=== PATIENT | female | born 1970 | race American Indian/Alaskan Native ===

== ENCOUNTER 2017-08-26 14:37 | Emergency (ER) | payer OTHER ==
[2017-08-26 14:45] VITALS: BMI 22.2
[2017-08-26 15:10] VITALS: BP 136/74; PULSE 87; RESP 18; TEMP 98; O2SAT 99
--- NOTE | 2017-08-26 15:15 | ED PDOC ---
Arrival/HPI - General Time Seen by Provider: 08/26/17 14:41 Historian: Patient, Family (niece) - History of Present Illness Narrative History of Present Illness (Text): 08/26/17 15:15 This 47 yo female with pmh HIV+, lung Ca., presents to this ED requesting wound check. Patient stated she was admitted at [facility] for right pleural effusion on July 24. Patient got a chest tube inserted on . Patient was discharged home x 2 weeks ago. She stated she was supposed to have a nurse look at the chest tube on a daily basis. However, due to insurance coverage problems, she has not had wound dressing wound changed. Patient stated she saw her pmd early today, and recommended patient to be seen at ED for wound check, and wound dressing change. Patient noted her HIV is controlled, with a CD4 that is "high", and a viral load ninfa is is "normal" as per patient. Patient denies sob, fever, cp, wound discharge, cellulitis, cough , trauma, or dizziness. Time/Duration: Other (see hpi) Context: Home Past Medical History - Provider Review Nursing Documentation Reviewed: Yes - Infectious Disease Hx of Infectious Diseases: None - Pulmonary Hx Lung Cancer: Yes Other/Comment: lung cancer on chemo every 3 weeks - Hematological/Oncological Hx AIDS: Yes - Psychiatric Hx Substance Use: No - Surgical History Hx Section: Yes (x3) - Anesthesia Hx Anesthesia Reactions: No Hx Malignant Hyperthermia: No Family/Social History - Physician Review Nursing Documentation Reviewed: Yes Family/Social History: Other (noncontributory) Smoking Status: Former Smoker Hx Alcohol Use: No Hx Substance Use: No Allergies/Home Meds Allergies/Adverse Reactions: Allergies No Known Allergies Allergy (Verified 08/26/17 14:45) Review of Systems - Review of Systems Constitutional: Normal. absent: Fatigue, Weight Change, Fevers Eyes: Normal ENT: Normal Respiratory: Normal, Other (right sided chest tube). absent: SOB, Cough Cardiovascular: Normal. absent: Chest Pain Gastrointestinal: Normal. absent: Abdominal Pain, Nausea, Vomiting Genitourinary Female: Normal Musculoskeletal: Normal Skin: Normal. absent: Rash, Abscess, Cellulitis Neurological: Normal Endocrine: Normal Hemo/Lymphatic: Normal Psychiatric: Normal Physical Exam Vital Signs Temp Pulse Resp BP Pulse Ox 08/26/17 15:10 98.0 F 87 18 136/74 99 Temperature: Afebrile Blood Pressure: Normal Pulse: Regular Respiratory Rate: Normal Appearance: Positive for: Well-Appearing, Non-Toxic, Comfortable Pain Distress: None Mental Status: Positive for: Alert and Oriented X 3 - Systems Exam Head: Present: Atraumatic, Normocephalic Pupils: Present: PERRL Extroacular Muscles: Present: EOMI Conjunctiva: Present: Normal Mouth: Present: Moist Mucous Membranes Neck: Present: Normal Range of Motion Respiratory/Chest: Present: Clear to Auscultation, Good Air Exchange, Other ((+ ) right sided Chest tube. no drainage or surrounding erythema. No tenderness) . No: Respiratory Distress, Accessory Muscle Use, Wheezes, Rales, Retracting, Rhonchi Cardiovascular: Present: Regular Rate and Rhythm, Normal S1, S2. No: Murmurs Abdomen: Present: Normal Bowel Sounds, Other (Abdomen is round). No: Tenderness , Distention, Peritoneal Signs Back: Present: Normal Inspection Upper Extremity: Present: Normal Inspection. No: Cyanosis, Edema Lower Extremity: Present: Normal Inspection. No: Edema Neurological: Present: GCS=15, CN II-XII Intact, Speech Normal, Motor Func Grossly Intact, Normal Sensory Function, Normal Cerebellar Funct Skin: Present: Warm, Dry, Normal Color. No: Rashes Psychiatric: Present: Alert, Oriented x 3, Normal Insight, Normal Concentration Medical Decision Making ED Course and Treatment: 08/26/17 15:25 Patient came to ED for chest tube wound recheck, and dressing change. I recommended patient that she needs to have labs, CXR, and surgical consult. Patient stated she realized she will not going to see her surgeon, Dr. Isiah Hernandez from [facility] in this Hospital. She stated she feels well , and she prefers to go directly to [facility] ED, upon AMA discharge form this hospital. Patient is refusing to have blood test, CXR or other medical consult at this time, since she prefers to be seen at [facility]. Patient niece is at bedside. Patient prefers to sign AMA, and she understands risk of severe infection, , chronic pain/suffering, permanent disability. 08/26/17 15:27 Leaving Against Medical Advice (AMA): This patient is choosing to leave against medical advice. The EP has personally explained to the pt that choosing to do so may result in permanent bodily harm or . The EP discussed at great length that without further evaluation and monitoring there may be unforeseen circumstances and/or deterioration causing permanent bodily harm or as a result of their choice. The pt verbalized these risks back to the physician in laymans terms. The pt is alert, oriented, and shows the mental capacity to make clear decisions regarding the pts health care at this time. The pt continues to wish to leave against medical advice. In light of the pts decision to leave AMA, follow-up has been recommended and the pt is aware of the importance of following up as instructed. The pt has been advised that they should return to the ED immediately if they change their mind at any time, or if thier condition begins to change or worsen in any way. Re-evaluation Time: 15:30 Reassessment Condition: Re-examined, Unchanged Disposition/Present on Arrival - Present on Arrival Any Indicators Present on Arrival: No History of DVT/PE: No History of Uncontrolled Diabetes: No Urinary Catheter: No History of Decub. Ulcer: No History Surgical Site Infection Following: None - Disposition Have Diagnosis and Disposition been Completed?: Yes Diagnosis: Encounter for wound re-check Disposition: AGAINST MEDICAL ADVICE Disposition Time: 15:42 Condition: UNKNOWN Additional Instructions: I am sorry you did not want to be evaluated in this hospital. However, you must be seen at the [facility] ED as you have stated. You need to be seen today. If anything changes, you can got to any ED closest to you. Good luck
== END 2017-08-26 15:25 | disposition left against medical advice (07) ==
LOC: MERGE 14:37 → ED 14:37
DX: Z48.89 Encounter for other specified surgical aftercare (principal)